=== PATIENT | female | born 1985 | race Caucasian/White ===

== ENCOUNTER 2016-09-28 17:19 | Emergency (ER) | payer OTHER ==
[2016-09-28 17:34] VITALS: BMI 29.2
--- NOTE | 2016-09-28 17:48 | OBHP ---
Datetime: 09/28/2016 17:41 IP Adm Impression: , intrauterine IP Admit Plan: Discharge home Admit Comment, IP Provider: pt is a 31yo g1 edc 11/01 @ 35.1wks [facility] by Dr. Jose Miguel grant or Betamethasone #1. Pt ob hx significant for FGR with AC lagging 3wks behind per fob. She denies de creased fm, pprom or ctxs. Pt had NST and BPP today and so was advised that no monitoring was indicated on L_D ob hx also sig for Cerclage placement pmhx: denies nkda medic: pnv pshx: as above i: 35 wks with IUGR p: betamethasone 12mg IM now. Indications, risks benefits, d/w pt. return to [facility] in 24hrs for injetion#2 Pelvic Type - PN: Not Done Abdomen - PN: Normal Breast - PN: Not Done Lungs - PN: Normal Thyroid - PN: Not Done Neurologic - PN: Normal HEENT - PN: Normal General - PN: Normal Comments, ACOG Physical Exam: FHR BY DOPPLER 140s Vital Signs Provider: Within Normal Limits IP Chief Complaint: Other Genitourinary Exam: Not Done DTRs - PN: Not Done
[2016-09-28] MEDS ORDERED: Betamethasone Soluspan 30 mg/5mL Inj Susp IM ONE (18:00)
== END 2016-09-28 18:25 | disposition home or self-care (01) ==
LOC: H.EROB2 17:19
DX: O26.873 Cervical shortening, third trimester (principal); Z3A.35 35 weeks gestation of pregnancy
CPT/HCPCS: 96372; 99281; J0702

== ENCOUNTER 2016-09-29 17:14 | Emergency (ER) | payer OTHER ==
[2016-09-29 17:28] VITALS: BMI 28.7
[2016-09-29] MEDS ORDERED: Betamethasone Soluspan 30 mg/5mL Inj Susp IM ONE (17:40)
--- NOTE | 2016-09-29 17:41 | OBHP ---
Datetime: 09/29/2016 17:30 IP Adm Impression: , intrauterine IP Admit Plan: Observation/Evaluation; Discharge home Admit Comment, IP Provider: edc 11/01 @ 35+wks [facility] Gillespie for Betameth asone #1. Pt ob hx significant AC lagging 3wks behind per fob. +fm, pprom or ctxs. Pt had NST and BPP toda y and so was advised that no monitoring was indicated on L_D ob hx also sig for Cerclage placement pmhx: denies nkda medic: pnv pshx: as above A 35 wks with IUGR p: betamethasone 12mg IM now. Indications, risks benefits, d/w pt. NST Abdomen - PN: Normal HEENT - PN: Normal General - PN: Normal FHR - Baseline A Provider: 120 Comments, ACOG Physical Exam: ROS: General - no fatigue HEENT: No VIDAL; no visual disturbance CV: no CP; no palpitations RESP: No Cough; no SOB GI: No N/V/D : No F/U/D MS: no joint pain IP Hx Assessment: The History has been Reviewed and is Current EGA AdmitDate IP: 35.2 IP Chief Complaint: Other NICHD Variability Prov Fetus A: Moderate 6-25bpm NICHD Accel Fetus A IP Provider: [id number] FHR Category Provider Fetus A: Category I
== END 2016-09-29 18:10 | disposition home or self-care (01) ==
LOC: H.EROB2 17:14
DX: O36.5131 Maternal care for known or suspected placental insufficiency, third trimester, fetus 1 (principal); Z3A.35 35 weeks gestation of pregnancy; O26.873 Cervical shortening, third trimester
CPT/HCPCS: 96372; 99281; J0702

== ENCOUNTER 2016-10-19 18:36 | Inpatient (IN) | payer OTHER ==
[2016-10-19] MEDS ORDERED: ceFAZolin 2 GM in Sodium Chloride 0.9% 100 ML IVPB ONE (18:42)
[2016-10-19 18:43] VITALS: BMI 30.2
[2016-10-19] MEDS ORDERED: Lactated Ringer's 1,000 ML IV SCH ×2 (18:45→21:35)
[2016-10-19 19:03] LABS: BASO # 0.1 K/uL (0.0-0.2); BASO % 0.8 % (0.0-2.0); EOS # 0.1 K/uL (0.0-0.7); EOS % 0.6 % (0.0-4.0); HEMATOCRIT 36.3 % (34.0-47.0); LYMPH # 3.4 K/uL (1.0-4.3); LYMPH % 23.4 % (20.0-40.0); MEAN CELL VOLUME 77.3 fl (81.0-99.0); MEAN CORPUSCULAR HEMOGLOBIN 24.9 pg (27.0-31.0); MEAN CORPUSCULAR HGB CONC 32.2 g/dL (33.0-37.0); MEAN PLATELET VOLUME 9.2 fl (7.2-11.7); MONO % 6.9 % (0.0-10.0); NEUT # 9.8 K/uL (1.8-7.0); NEUT % 68.3 % (50.0-75.0); NRBC % 0.1 % (0.0-0.0); RED CELL DISTRIBUTION WIDTH 14.6 % (11.5-14.5); WHITE BLOOD COUNT 14.4 K/uL (4.8-10.8)
[2016-10-19] MEDS ORDERED: ceFAZolin 1 GM in Sodium Chloride 0.9% 100 ML IVPB STA (19:45)
[2016-10-19] MEDS ORDERED: Morphine 1 mg/ml preservative-free Inj(Duramorph) ONE (19:54)
[2016-10-19] MEDS ORDERED: Phenylephrine 10 mg/ml Inj ONE (19:59)
--- NOTE | 2016-10-19 20:00 | OBADHP ---
Datetime: 10/19/2016 18:57 Admit Comment, IP Provider: Patient is a @ 38.1 wks with IUGR, history of short cervix, cerclag e placed and removed at 37 wks. Patient is requesting a for delivery. No medical problems, no previous surgeries, no allergies, no medications except PNV [id number] mod bella, +accels, no decels TOCO= zandra q 2-4 mins A/P 1. Patient to be admitted for for IUGR. Admit patient, start IV, CBC, type and screen 2. CEFM and TOCO 3. Patient consented for surgery, advised of risks and benefits including bleeding, infection, dam age to surrounding organs 4. Ancef for antibiotics Pelvic Type - PN: Adequate Extremities - PN: Normal Abdomen - PN: Normal Back - PN: Normal Breast - PN: Normal Lungs - PN: Normal Heart - PN: Normal Thyroid - PN: Normal Neurologic - PN: Normal HEENT - PN: Normal General - PN: Normal FHR - Baseline A Provider: 120 Contraction Comments Provider: infrequent Vital Signs Provider: Reviewed; Within Normal Limits IP Chief Complaint: Scheduled Section NICHD Variability Prov Fetus A: Moderate 6-25bpm NICHD Decel Fetus A IP Provider: None Genitourinary Exam: Normal DTRs - PN: Normal EGA AdmitDate IP: 38.1 IP Adm Impression: Term, intrauterine IP Admit Plan: Admit to unit; Initiate Section protocol Datetime: 09/29/2016 17:30 Comments, ACOG Physical Exam: ROS: General - no fatigue HEENT: No VIDAL; no visual disturbance CV: no CP; no palpitations RESP: No Cough; no SOB GI: No N/V/D : No F/U/D MS: no joint pain IP Hx Assessment: The History has been Reviewed and is Current NICHD Accel Fetus A IP Provider: [id number] FHR Category Provider Fetus A: Category I
[2016-10-19] MEDS ORDERED: Naloxone 0.4 mg/ml Inj (Adult) IVP PRN ×2 (20:40→22:26)
[2016-10-19] MEDS ORDERED: DiphenhydrAMINE 50 mg/ml Inj IVP PRN ×2 (20:40→22:26)
[2016-10-19] MEDS ORDERED: Oxycodone/Acetaminophen 5/325 mg Tab PO PRN ×3 (20:47→22:26)
--- NOTE | 2016-10-19 22:23 | OP ---
PROCEDURE DATE: 10/19/2016 PREOPERATIVE DIAGNOSIS: Intrauterine at 39 weeks', intrauterine growth restriction, gonzález an section maternal request. POSTOPERATIVE DIAGNOSIS: Intrauterine at 39 weeks', intrauterine growth restriction, pratik mathew section maternal request. OPERATION PERFORMED: Primary low flap transverse section via Pfannenstiel skin incision. SURGEON: Remington Gillespie MD. DOG AND CAT FOOD COOK: Dr. Mei ANESTHESIA: Spinal administered by Dr. Conway. ESTIMATED BLOOD LOSS: 800 mL. The patient's Goff put out approximately 100 mL of clear urine. The patient received approximately 800 mL of D5 LR intraoperatively. URINE OUTPUT: Goff catheter put out approximately 100 mL. OPERATIVE FINDINGS: A live male infant, vertex presentation, weighing 5 pounds 12 ounces, Apgars 9 a nd 9. Normal uterus, tubes, and ovaries were identified. COMMENTS: Dr. Mei was the conservation assistant in the procedure. She was instrumental in the care of the p atient. She helped create exposure, obtain hemostasis, retracted, and delivery of the infant and milana sure of the patient. The procedure was not possible without her assistance. PROCEDURE: After informed consent was obtained, the patient was taken to the operating room where sh e was given spinal anesthesia. She was then placed into a supine position with a leftward tilt. She was prepped and draped in a normal sterile fashion. A Pfannenstiel skin incision was then made with the scalpel and carried down to the underlying layer of fascia. The fascia was nicked in the midlin e. Fascial incision was then extended laterally with the curved Ortez scissors. Superior aspect of t he fascial incision was then grasped with Mehran clamps, elevated up, and the rectus muscles were dis sected off using both sharp and blunt dissection. Attention was then turned to the inferior aspect o f the fascial incision which was grasped with Mehran clamps, elevated up, and the rectus muscles were dissected off using both sharp and blunt dissection. The rectus muscles were then in the midline. The peritoneum identified and entered sharply with the Metzenbaum scissors. Peritoneal inc ision was then extended superiorly and inferiorly with good visualization of the bladder. The bladde r blade was inserted. The vesicouterine peritoneum was identified and entered sharply with the Nikolay roland scissors. The incision was then extended laterally and the bladder flap was created digitally. The bladder blade was then readjusted. A low transverse incision was then made with a scalpel. Th e incision was then extended laterally with the bandage scissors. The infant's head was then deliver ed atraumatically. Nose, mouth were suctioned with DeLee suction trap. The cord was clamped and cut . The was handed off to waiting pediatricians. The placenta was then removed manually. The uterus was exteriorized and cleared of all clots and debris. The uterine incision was repaired with 0 Vicryl in a running locked fashion. A second layer of the same suture was used to obtain excellent hemostasis. The abdomen was then copiously irrigated. The irrigant was removed with a suction zay ce. Hemostasis was noted. The uterus was returned to the abdomen. The peritoneum was closed with 2 -0 Vicryl in a running fashion. The muscles reapproximated with 0 Vicryl in interrupted fashion. Th e fascia was closed with 0 Vicryl in a running fashion. The skin was closed with 4-0 on a Ananda need le. All sponge, lap, needle, and instrument counts were correct x 2 and the patient was taken to rec overy room in awake and stable condition. Ernestina Gillespie MD cc: [phone] TT: 10/19/2016 22:22:26 jn
[2016-10-20] MEDS: Lactated Ringer's 1,000 ML IV SCH ×2 (05:16→05:18)
[2016-10-20 07:06] LABS: HEMATOCRIT 31.3 % (34.0-47.0); MEAN CELL VOLUME 76.6 fl (81.0-99.0); MEAN CORPUSCULAR HEMOGLOBIN 25.3 pg (27.0-31.0); MEAN CORPUSCULAR HGB CONC 33.1 g/dL (33.0-37.0); RED CELL DISTRIBUTION WIDTH 14.4 % (11.5-14.5); WHITE BLOOD COUNT 14.8 K/uL (4.8-10.8)
[2016-10-20] MEDS: Multivitamin With Minerals Tab PO SCH (08:57)
[2016-10-20] MEDS: Oxycodone/Acetaminophen 5/325 mg Tab PO PRN ×3 (08:57→20:48)
[2016-10-20] MEDS ORDERED: Multivitamin With Minerals Tab PO SCH (09:00)
--- NOTE | 2016-10-20 23:52 | OBPPN ---
Datetime: 10/20/2016 23:49 PP Pain Prov: Within normal limits PP Nausea Prov: Denies PP Flatus Prov: Yes PP BM Prov: No PP Breasts Prov: Not Done PP Heart Prov: Normal PP Lungs Prov: Normal PP Abdomen/Uterus Prov: Normal PP Lochia Prov: Normal PP Vulva/Perineum Prov: Normal PP CVA Tenderness Prov: Normal PP Extremities Prov: Normal PP C/S Incision Prov: Normal PP Impression Prov: Normal progression PP Plan Prov: Continue present management PP Progress Note Prov: POD 1 cont post op care Vital Signs Provider PP: Reviewed; Within Normal Limits
[2016-10-21] MEDS: Multivitamin With Minerals Tab PO SCH (08:51)
[2016-10-21 08:52] VITALS: BP 126/76; PULSE 95; RESP 18; TEMP 98.6
--- NOTE | 2016-10-21 13:19 | OBPPN ---
Datetime: 10/21/2016 13:16 PP Pain Prov: Within normal limits PP Nausea Prov: Denies PP Flatus Prov: Yes PP Breasts Prov: Normal PP Heart Prov: Normal PP Lungs Prov: Normal PP Abdomen/Uterus Prov: Normal PP Lochia Prov: Normal PP Vulva/Perineum Prov: Normal PP CVA Tenderness Prov: Normal PP Extremities Prov: Normal PP Impression Prov: Normal progression PP Plan Prov: Continue present management PP Progress Note Prov: Patient while pain well-controlled ambulating tolerating diet and voiding wit hout difficulty Vital signs stable afebrile Uterus firm below the umbilicus Incision clean dry and intact Extremities no Homans Post operative day #2 Ambulation, regular diet, anticipate discharge in a.m., Motrin or Percocet as needed Vital Signs Provider PP: Reviewed
[2016-10-22] MEDS: Oxycodone/Acetaminophen 5/325 mg Tab PO PRN ×2 (00:22→08:43)
[2016-10-22] MEDS: Multivitamin With Minerals Tab PO SCH (08:41)
--- NOTE | 2016-10-22 10:58 | OBPPN ---
Datetime: 10/22/2016 09:47 PP Pain Prov: Within normal limits PP Nausea Prov: Denies PP Flatus Prov: Yes PP BM Prov: Yes PP Abdomen/Uterus Prov: Normal PP Lochia Prov: Normal PP Extremities Prov: Normal PP C/S Incision Prov: Normal PP Progress Prov: Normal PP Comments Phys Exam Prov: Incision: intact w/ steri strips PP Impression Prov: Normal progression PP Plan Prov: Discharge PP Progress Note Prov: POD 3 s/p c/s, doing well, breast feeding Rx's motrin, percocet given Discharge home today Vital Signs Provider PP: Reviewed
--- NOTE | 2016-10-22 11:01 | OBDCSUM ---
Datetime: 10/22/2016 10:57 Discharged to, Provider: Home Follow up at, Provider: Dr. Gillespie Disch Instr Activity: Normal activity; May Shower Disch Instr Diet: Regular Discharge Instructions, Provider: Routine instructions given Discharge Diagnosis, Provider: Term Delivered Discharge Time: 10/22/2016 10:57 Follow up in weeks, Provider: 1 week Contraception discussed, Prov: Yes Disch Activity Restrictions: No exercising; No lifting; No driving; No sexual activity; Nothing in v agina - [place], tampons, douche
== END 2016-10-22 13:05 | disposition home or self-care (01) | DRG 765 ==
LOC: H.EROB2 18:36 → H.L&D 18:47 → H.OB/GYN 23:00
PROVIDERS: ADMIT Obstetrics & Gynecology Gynecology; ATTEND Obstetrics & Gynecology Gynecology
PROC: 10D00Z1 Extraction of Products of Conception, Low, Open Approach (ICD-10-PCS; principal; 2016-10-19)
PROC: 4A1HXCZ Monitoring of Products of Conception, Cardiac Rate, External Approach (ICD-10-PCS; 2016-10-19)
DX: O36.5930 Maternal care for other known or suspected poor fetal growth, third trimester, not applicable or unspecified (principal); O26.873 Cervical shortening, third trimester; Z3A.38 38 weeks gestation of pregnancy; Z37.0 Single live birth